=== PATIENT | female | born 1980 | race Caucasian/White ===

== ENCOUNTER 2019-10-29 14:04 | Emergency (ER) | payer OTHER ==
[~2019-10-29] VITALS: Ht 154.9 cm; Wt 98.9 kg
[2019-10-29] MEDS ORDERED: AMOXICILLIN/CLAV 875-125MG TABLET ONE (15:52)
[2019-10-29] MEDS ORDERED: HYDROcodone/APAP 5/325 TABLET ONE (15:53)
[2019-10-29] MEDS ORDERED: AMOXICILLIN/CLAV 875-125MG TABLET PO ONE (16:00)
[2019-10-29] MEDS ORDERED: HYDROcodone/APAP 5/325 TABLET PO ONE (16:00)
[2019-10-29 16:31] VITALS: BP 133/78
== END 2019-10-29 16:59 | disposition home or self-care (01) ==
LOC: ED 15:45
DX: S60.371A Other superficial bite of right thumb, initial encounter (principal); F17.200 Nicotine dependence, unspecified, uncomplicated; Z90.49 Acquired absence of other specified parts of digestive tract; W54.0XXA Bitten by dog, initial encounter; Y93.89 Activity, other specified; Y92.009 Unspecified place in unspecified non-institutional (private) residence as the place of occurrence of the external cause; Y99.8 Other external cause status
CPT/HCPCS: 99283